=== PATIENT | male | born 1985 | race Caucasian/White ===

== ENCOUNTER 2017-05-01 02:32 | Inpatient (IN) | payer OTHER ==
[2017-05-01] MEDS ORDERED: SODIUM CHLORIDE 1,000 ML IV STA ×2 (03:37→09:58)
[2017-05-01] MEDS ORDERED: FAMOTIDINE 20 MG/50 ML IVPB 50 ML IVPB ONE ×2 (03:37→04:49)
[2017-05-01] MEDS ORDERED: PANTOPRAZOLE SODIUM 40 MG in SODIUM CHLORIDE 100 ML IVPB ONE (03:37)
--- NOTE | 2017-05-01 03:43 | PDOC ---
History of Present Illness - General Stated Complaint: ABD PAIN Time Seen by Provider: 05/01/17 03:17 History Source: Patient Exam Limitations: No Limitations - History of Present Illness Travel History: No Initial Comments: 05/01/17 03:38 32yo Male patient w/ PmHx: Asthma presents to ED c/o Abdominal pain. Patient states he went out to eat dinner (tacos) with mother when he began experiencing abdominal pain. He [place] pain [place]. Patient describes pain as burning sensation from mid-abd to upper stomach. He was recently seen by PCP Matt Miles for routine physical, and states everything was okay. Timing/Duration: reports: getting worse Quality: reports: moderate, burning Abdominal Pain Onset Location: reports: epigastric Pain Radiation: reports: no radiation Activities at Onset: reports: eating Treatment Prior to Arrive: worse with: analgesics, antacids, cold pack, heat, laxative, enema, other Aggravating Factors: improves with: Change in position Alleviating Factors: improves with: Rest Past History - Travel Traveled outside of the country in the last 30 days: No Close contact w/someone who was outside of country & ill: No - Past Medical History Allergies/Adverse Reactions: Allergies Allergy/AdvReac Type Severity Reaction Status Date / Time guaifenesin [From Robitussin] Allergy Severe Hives Verified 06/11/16 11:23 Home Medications: Ambulatory Orders Albuterol Sulfate Inhaler - [Ventolin Hfa Inhaler -] 1 - 2 inh PO PRN PRN Budesonide/Formeterol Fumarate [SYMBICORT 160/4.5mcg -] 1 puff IH PRN PRN Anemia: No Asthma: Yes (WHEEZING ONLY) Cancer: No Cardiac Disorders: Yes (CHILDHOOD HEART MURMUR) CVA: No COPD: No CHF: No Dementia: No Diabetes: No GI Disorders: No Disorders: No HTN: No Hypercholesterolemia: No Liver Disease: No Seizures: No Thyroid Disease: No - Surgical History Abdominal Surgery: No Appendectomy: No Cardiac Surgery: No Cholecystectomy: No Lung Surgery: No Neurologic Surgery: No Orthopedic Surgery: Yes (RIGHT ELBOW AGE 6) - Psycho/Social/Smoking Cessation Hx Anxiety: No Suicidal Ideation: No Smoking Status: Yes Smoking History: Former smoker Have you smoked in the past 12 months: No Number of Cigarettes Smoked Daily: 1 If you are a former smoker, when did you quit?: 2013 Hx Alcohol Use: Yes (RARE) Drug/Substance Use Hx: No Substance Use Type: None Hx Substance Use Treatment: No Abd/GI Specific PMHX - Complaint Specific PMHX Colitis: No Diverticulitis: No Gall Bladder Disease: No GERD: No Hepatitis: No Irritable Bowel Synd (IBS): No Pancreatitis: No GI Ulcer Disease: No Review of Systems - Review of Systems Able to Perform ROS?: Yes Is the patient limited [place] proficient: No Constitutional: No: Chills, Fever ABD/GI: Yes: Abdominal cramping. No: Diarrhea, Nausea, Poor Appetite, Poor Fluid Intake, Vomiting : No: Burning, Dysuria, Flank Pain, Hematuria All Other Systems: Reviewed and Negative *Physical Exam - Physical Exam General Appearance: Yes: Nourished, Appropriately Dressed, Apparent Distress, Moderate Distress. No: Mild Distress, Severe Distress Respiratory/Chest: positive: Lungs Clear, Normal Breath Sounds. negative: Chest Tender, Respiratory Distress, Accessory Muscle Use, Labored Respiration, Rapid RR Cardiovascular: positive: Regular Rhythm, Regular Rate. negative: S1, S2, Edema , JVD Gastrointestinal/Abdominal: positive: Tender, Soft, Decreased BS, Guarding, Rebound, Tenderness, Other (Large Abdomen). negative: Distended Musculoskeletal: positive: Normal Inspection. negative: CVA Tenderness, Decreased Range of Motion, Vertebral Tenderness Extremity: positive: Normal Capillary Refill, Normal Inspection, Normal Range of Motion. negative: Coldness, Pedal Edema, Swelling, Calf Tenderness, Erythema , Inflammation Integumentary: positive: Normal Color, Dry, Warm. negative: Erythema, Cold, Clammy, Diaphoresis, Swelling Neurologic: positive: disintegrator feeder II-XII NML intact, Fully Oriented, Alert, Normal Mood/ Affect, Normal Response, Motor Strength 5/5
--- NOTE | 2017-05-01 04:24 | PDOC ---
*Physical Exam - Vital Signs Last Vital Signs Temp Pulse Resp BP Pulse Ox 97.9 F 60 20 139/95 99 05/01/17 03:40 05/01/17 03:40 05/01/17 03:40 05/01/17 03:40 05/01/17 03:40 ED Treatment Course - LABORATORY CBC & Chemistry Diagram: 05/01/17 12:50 05/01/17 12:50 Medical Decision Making - Medical Decision Making 05/01/17 04:24 Pt seen by the Advanced Practice Provider under my direct supervision Ancillary studies reviewed I agree with plan as outlined by the Advanced Practice Provider TASH Martinez *DC/Admit/Observation/Transfer Diagnosis at time of Disposition: Epigastric pain, Cholecystitis
[2017-05-01 04:32] VITALS: BMI 47.6
[2017-05-01] MEDS ORDERED: PANTOPRAZOLE SODIUM 100 ML IVPB ONE (04:49)
[2017-05-01 04:51] LABS: BASOPHIL 0.6 % (0-2.0); EOSINOPHIL 2.4 % (0-4.5); MCH 28.6 pg (25.7-33.7); MCHC 33.6 g/dl (32.0-35.9); MEAN PLT VOLUME 9.5 fl (7.5-11.1); NEUTROPHILS 80.3 % (42.8-82.8); PLATELET COUNT 276 K/MM3 (134-434); RDW 13.5 % (11.9-15.9); WHITE BLOOD COUNT 12.4 K/mm3 (4.0-10.0)
[2017-05-01] MEDS ORDERED: morphine CARPU-JECT 4 MG/1 ML DISP.SYRIN IVPUSH ONE ×2 (05:12→09:32)
[2017-05-01] MEDS ORDERED: METOCLOPRAMIDE HCL INJECTION 10 MG/2 ML VIAL IVPB ONE (05:13)
[2017-05-01 05:22] LABS: ALBUMIN 4.3 g/dl (3.4-5.0); ALK PHOS 97 U/L (45-117); AMYLASE 75 U/L (25-115); ANION GAP 8 (8-16); BILIRUBIN,TOTAL 0.3 mg/dL (0.2-1.0); CALCIUM 9.4 mg/dL (8.5-10.1); CO2 25 mmol/L (21-32); GLUCOSE,RANDOM 112 mg/dL (74-106); SGOT/AST 22 U/L (15-37); SGPT/ALT 51 U/L (12-78); TOT PROT 8.3 g/dl (6.4-8.2)
[2017-05-01] MEDS ORDERED: morphine CARPU-JECT 4 MG/1 ML DISP.SYRIN ONE ×2 (05:25→09:42)
[2017-05-01] MEDS ORDERED: METOCLOPRAMIDE HCL INJECTION 10 MG/2 ML VIAL ONE (05:26)
--- NOTE | 2017-05-01 07:45 | PDOC ---
ED Treatment Course - LABORATORY CBC & Chemistry Diagram: 05/01/17 12:50 05/01/17 12:50 - ADDITIONAL ORDERS Additional order review: Laboratory Results 05/01/17 04:45 Sodium 141 Potassium 4.1 Chloride 108 H Carbon Dioxide 25 Anion Gap 8 BUN 20 H Creatinine 1.0 Creat Clearance w eGFR > 60 Random Glucose 112 H D Calcium 9.4 Total Bilirubin 0.3 D AST 22 D ALT 51 D Alkaline Phosphatase 97 Total Protein 8.3 H Albumin 4.3 Total Amylase 75 D Lipase 149 05/01/17 04:45 RBC 5.02 MCV 85.0 MCHC 33.6 RDW 13.5 MPV 9.5 Neutrophils % 80.3 D Lymphocytes % 12.3 D Monocytes % 4.4 Eosinophils % 2.4 D Basophils % 0.6 - Medications Given in the ED: ED Medications Discontinued Medications Generic Name Dose Route Start Last Admin Trade Name Freq PRN Reason Stop Dose Admin Pantoprazole Sodium 40 mg/ 100 mls @ 200 mls/hr 05/01/17 03:37 05/01/17 04:56 Sodium Chloride IVPB 05/01/17 04:06 200 mls/hr ONCE ONE Administration Famotidine/Sodium Chloride 50 mls @ 100 mls/hr 05/01/17 03:37 05/01/17 04:40 Pepcid 20 Mg Premixed Ivpb - IVPB 05/01/17 04:06 100 mls/hr ONCE ONE Administration Sodium Chloride 1,000 mls @ 1,000 mls/hr 05/01/17 03:37 05/01/17 04:55 Normal Saline - IV 05/01/17 04:36 1,000 mls/hr ASDIR STA Administration Metoclopramide HCl 10 mg 05/01/17 05:13 05/01/17 05:22 Reglan Injection - IVPB 05/01/17 05:14 10 mg ONCE ONE Administration Morphine Sulfate 4 mg 05/01/17 05:12 05/01/17 05:22 Morphine Injection - IVPUSH 05/01/17 05:13 4 mg ONCE ONE Administration Progress Note - Progress Note Progress Note: I have received report from TASH Martinez regarding this patient. Pt's initial chief complaint: abdominal pain Pt's work up completed prior to sign out: labs, UA, EKG Pt treatment given from prior staff: morphine, pepcid, reglan, protonix Pt plan to be completed: Awaiting CT of abd/pelvis Dispo: Pending Medical Decision Making - Medical Decision Making A/P: 32 y/o male c/o abdominal pain. Patient was evaluated by TASH Martinez. Labs , UA, EKG completed and unremarkable. Awaiting on CT scan of abd/pelvis. CT scan abd/pelvis IMPRESSION: Cholelithiasis with slight apparent thickening of the gallbladder wall and minimal haziness in the gallbladder margins. Early cholecystitis can have this appearance. No other inflammatory process identified in the abdomen or pelvis. No abdominal mass, adenopathy or collection seen. The patient was given his results. He is still in quite a bit of pain with + Klein's sign. Will give more pain medication and call surgery. Spoke with Dr. Meek. She suggests gallbladder ultrasound Gallbladder ultrasound IMPRESSION: Fatty liver versus hepatocellular disease. Please correlate with liver enzymes. Multiple small gallstones without sonographic evidence of acute cholecystitis. Correlate clinically to determine further evaluation. Dr. Meek reviewed all the imaging and saw the patient. She is not convinced it' s cholecystitis. THe patient did inform her that Dr. Miles called him out some medications to try for reflux a few days ago which he has not picked up yet. She would like a repeat set of basic lab and if everything is stable d/c to home with GI follow up. Pt is in agreement with that plan. Gave him PO carafate. Repeat labs reveal an increase in WBC count and Neutrophil %. The patient does appear to now be well hydrated. He admits he feels better after PO Carafate. Discussed the plan with him for admission for antibiotics and he is willing to stay. Spoke with Dr. Meek and she is willing to admit him. *DC/Admit/Observation/Transfer Diagnosis at time of Disposition: Epigastric pain, Cholecystitis - Discharge Dispostion Condition at time of disposition: Stable Admit: Yes
[2017-05-01] MEDS ORDERED: morphine CARPU-JECT 2 MG/1 ML DISP.SYRIN IVPUSH ONE (09:45)
[2017-05-01] MEDS ORDERED: morphine CARPU-JECT 2 MG/1 ML DISP.SYRIN ONE (09:46)
[2017-05-01] MEDS ORDERED: SUCRALFATE 1 GM TABLET (FP) PO ONE (12:34)
[2017-05-01] MEDS ORDERED: SUCRALFATE 1 GM TABLET (FP) ONE (12:39)
[2017-05-01 12:57] LABS: BASOPHIL 0.4 % (0-2.0); EOSINOPHIL 0.3 % (0-4.5); MCH 28.7 pg (25.7-33.7); MCHC 33.9 g/dl (32.0-35.9); MEAN CELL VOLUME 84.6 fl (80-96); NEUTROPHILS 84.3 % (42.8-82.8); PLATELET COUNT 252 K/MM3 (134-434); RDW 13.9 % (11.9-15.9); WHITE BLOOD COUNT 13.3 K/mm3 (4.0-10.0)
[2017-05-01 13:25] LABS: ALBUMIN 3.9 g/dl (3.4-5.0); ALK PHOS 95 U/L (45-117); ANION GAP 9 (8-16); BILIRUBIN,TOTAL 0.4 mg/dL (0.2-1.0); CALCIUM 8.8 mg/dL (8.5-10.1); CO2 24 mmol/L (21-32); CREATININE 0.7 mg/dL (0.7-1.3); GLUCOSE,RANDOM 99 mg/dL (74-106); SGOT/AST 17 U/L (15-37); SGPT/ALT 43 U/L (12-78); TOT PROT 7.3 g/dl (6.4-8.2)
--- NOTE | 2017-05-01 14:02 | CONSULT ---
Consult - text type - Consultation Consultation Note: Pt seen and examined in ER. History and exam more consistent with GERD/PUD than cholecystitis, but WBC 12.4 and + cholelithiasis. Repeated labs and wbc up to 13 with left shift. BUN/Cr and H/H decreased consistent with euvolemia after IV hydration. Pt willing to stay. Will admit for IV antibiotics for presumed cholecystitis and consideration for HIDA/lap krystal pending clinical course. With resolution, pt may decide on d/c home with plan for GI workup prior to cholecystectomy. See full H&P for details. Thank you for the opportunity to participate in the care of this patient.
--- NOTE | 2017-05-01 14:07 | HP ---
Admitting History and Physical - Primary Care Physician PCP: Matt Miles - Admission Chief Complaint: epigastric pain History of Present Illness: 32yo obese M with asthma and h/o L arthroscopic ACL reconstruction last year presents with epigastric pain beginning around 10pm last night after eating taco meal at restaurant. The pain persisted and got worse over the next several hours, interfering with sleep, and was not affected by having a BM or taking Tums. He came to the ER around 3am, and had one episode of N/V (green) shortly after arriving while getting IV placed and labs drawn. He denies F/C but had sweating when the pain first began. No d/c, normal BM last night. Last po was water while in waiting room and one small cup of water after CT scan. In ER, wbc 12.4, LFTs and lipase normal, CT suspicious for early cholecystitis with + stones (one possibly in gb neck on my review), mild haziness at wall/liver edge , no biliary dilation. US showed only cholelithiasis with multiple stones but no signs of cholecystitis and normal CBD. Pain responded somewhat to morphine and carafate in ER. He had also been given Protonix and Pepcid. Tenderness is primarily epigastric without john RUQ tenderness, but pain was coming back after US was done. Surgery was consulted and labs were repeated. Pt describes episode of RUQ pain few years ago investigated here and thought to be GERD, took course of acid medication then but not regularly. 5 days ago, had episode of acid in back of throat early in the morning and took Tums with relief. Few days ago, he had chest tightness in am and saw PMD; workup including EKG, CXR, stress test was negative per pt. He has not yet picked up Rx for acid medication, but they were planning a trial thereof for presumed acid-related pain. He has not seen GI and does not take anything usually for acid. Review of [facility] shows US from 2008 showing no stones, but appears to possibly have sludge in gallbladder on review of images. Chest CT done 2014 does not visualize most of gallbladder. Repeat labs showed wbc increased at 13 with left shift, LFTs still normal. Pt is agreeable to admission for treatment for presumed cholecystitis. History Source: Patient Limitations to Obtaining History: No Limitations - Past Medical History Pulmonary: Yes: Asthma Gastrointestinal: Yes: GERD (been treated in past, describes intermittent symptoms) Musculoskeletal: Yes: Other (left ACL tear) - Past Surgical History Past Surgical History: Yes: Arthrosocopy (L ACL reconstruction) - Smoking History Smoking history: Former smoker Have you smoked in the past 12 months: No Aproximately how many cigarettes per day: 1 If you are a former smoker, when did you quit?: 2013 - Alcohol/Substance Use Hx Alcohol Use: Yes (RARE) History of Substance Use: reports: Marijuana Date of Last Use: 04/17/06 (daily x4-5 yrs, quit age 21) Home Medications - Allergies Allergies/Adverse Reactions: Allergies Allergy/AdvReac Type Severity Reaction Status Date / Time guaifenesin [From Robitussin] Allergy Severe Hives Verified 05/01/17 03:40 - Home Medications Home Medications: Ambulatory Orders Albuterol Sulfate Inhaler - [Ventolin Hfa Inhaler -] 1 - 2 inh PO PRN PRN Budesonide/Formeterol Fumarate [SYMBICORT 160/4.5mcg -] 1 puff IH PRN PRN Home Medications (free text): does not take symbicort every day; has not needed albuterol recently. has not picked up new Rx for antacid (not sure what was prescribed few days ago by PMD) Family Disease History - Family Disease History Family History: Unremarkable Review of Systems - Review of Systems Constitutional: reports: Diaphoresis (with pain last night initially). denies: Chills, Fever Eyes: denies: Blurred Vision, Double Vision HENT: denies: Difficult Swallowing, Hearing Loss, Nasal Congestion, Throat Pain Neck: denies: Swollen Glands, Tenderness Cardiovascular: reports: Chest Pain (felt tightness in am few days ago and saw PMD - had EKG, CXR, stress test all normal - no pain since). denies: Palpitations Respiratory: denies: Cough, SOB, Wheezing Gastrointestinal: reports: Abdominal Pain (with hpi; had episode of acid at back of throat 5d ago, better with Tums), Nausea (some), Vomiting (once in ER when first got here, green, small). denies: Constipation, Diarrhea Genitourinary: denies: Burning, Dysuria, Frequency Musculoskeletal: denies: Back Pain, Joint Pain, Muscle Pain Integumentary: denies: Pruritis, Rash Neurological: denies: Dizziness, Headache Physical Examination Vital Signs: Vital Signs Temperature 98.1 F 05/01/17 07:45 Pulse Rate 93 H 05/01/17 07:45 Respiratory Rate 18 05/01/17 07:45 Blood Pressure 145/87 05/01/17 07:45 O2 Sat by Pulse Oximetry (%) 98 05/01/17 07:45 Constitutional: Yes: Well Nourished, No Distress, Calm, Obese Eyes: Yes: Conjunctiva Clear, EOM Intact HENT: Yes: Atraumatic, Normocephalic Cardiovascular: Yes: Regular Rate and Rhythm. No: Murmur Respiratory: Yes: Regular, CTA Bilaterally. No: Wheezes Gastrointestinal: Yes: Soft, Abdomen, Obese, Hypoactive Bowel Sounds, Tenderness , Epigastrium (epigastric mainly without R/G, also mild just right of midline epigastric) ...Rectal Exam: Yes: Deferred Renal/: No: CVA Tenderness - Left, CVA Tenderness - Right Musculoskeletal: No: Joint Stiffness, Joint Swelling Extremities: No: Cool, Cyanosis Edema: No Peripheral Pulses WNL: Yes Integumentary: No: Jaundice, Rash Neurological: Yes: Alert, Oriented Psychiatric: Yes: Alert, Oriented Labs: CBC, BMP 05/01/17 12:50 05/01/17 12:50 Abnormal Lab Results 05/01/17 05/01/17 05/01/17 04:45 04:45 12:50 WBC 12.4 H 13.3 H Neutrophils % 84.3 H Chloride 108 H BUN 20 H Random Glucose 112 H D Total Protein 8.3 H CBCD WBC 13.3 K/mm3 (4.0-10.0) H 05/01/17 12:50 RBC 4.82 M/mm3 (4.00-5.60) 05/01/17 12:50 Hgb 13.8 GM/dL (11.7-16.9) 05/01/17 12:50 Hct 40.8 % (35.4-49) 05/01/17 12:50 MCV 84.6 fl (80-96) 05/01/17 12:50 MCHC 33.9 g/dl (32.0-35.9) 05/01/17 12:50 RDW 13.9 % (11.9-15.9) 05/01/17 12:50 Plt Count 252 K/MM3 (134-434) 05/01/17 12:50 MPV 9.0 fl (7.5-11.1) 05/01/17 12:50 CMP Sodium 140 mmol/L (136-145) 05/01/17 12:50 Potassium 3.9 mmol/L (3.5-5.1) 05/01/17 12:50 Chloride 107 mmol/L (98-107) 05/01/17 12:50 Carbon Dioxide 24 mmol/L (21-32) 05/01/17 12:50 Anion Gap 9 (8-16) 05/01/17 12:50 BUN 13 mg/dL (7-18) D 05/01/17 12:50 Creatinine 0.7 mg/dL (0.7-1.3) D 05/01/17 12:50 Creat Clearance w eGFR > 60 (>60) 05/01/17 12:50 Calcium 8.8 mg/dL (8.5-10.1) 05/01/17 12:50 Total Bilirubin 0.4 mg/dL (0.2-1.0) D 05/01/17 12:50 AST 17 U/L (15-37) D 05/01/17 12:50 ALT 43 U/L (12-78) 05/01/17 12:50 Alkaline Phosphatase 95 U/L (45-117) 05/01/17 12:50 Total Protein 7.3 g/dl (6.4-8.2) 05/01/17 12:50 Albumin 3.9 g/dl (3.4-5.0) 05/01/17 12:50 lipase normal Imaging - Results Cat Scan: Report Reviewed, Image Reviewed (gallbladder with slight possible haziness at liver edge, + cholelithiasis; on my review, moderate size stone in neck of gb, no biliary dilation) Ultrasound: Report Reviewed (with radiologist - + multiple stones, but not impacted, no wall thickening or pericholecystic fluid/edema, cbd 4mm), Image Reviewed Problem List - Problems (1) Epigastric pain Assessment/Plan: Some history and symptoms suspicious for GERD/PUD related pain. Pt has Rx waiting as outpatient from PMD to try but has not been referred to GI. Would consider outpatient referral/followup after resolution of acute issues for possible scope/workup. Code(s): R10.13 - EPIGASTRIC PAIN (2) Calculus of gallbladder with acute cholecystitis without obstruction Assessment/Plan: Cholecystitis likely related to intermittent stone obstructing gallbladder neck Admit to surgery NPO/IVF until no pain or tenderness GI/DVT prophylaxis (ambulation and SCDs) IV antibiotics - Zosyn per ID Trend labs Pain meds prn Will plan for lap possible open cholecystectomy Wednesday Code(s): K80.00 - CALCULUS OF GALLBLADDER W ACUTE CHOLECYST W/O OBSTRUCTION (3) Morbid obesity with BMI of 45.0-49.9, adult Code(s): E66.01 - MORBID (SEVERE) OBESITY DUE TO EXCESS CALORIES Z68.42 - BODY MASS INDEX (BMI) 45.0-49.9, ADULT
[2017-05-01] MEDS ORDERED: PIPERACILLIN/TAZOB 4.5 GM 4.5 GM in DEXTROSE 5%-WATER - 100 ML IVPB ONE (14:41)
[2017-05-01] MEDS ORDERED: ONDANSETRON 4 MG/2 ML VIAL IVPB PRN ×2 (14:44→22:37)
[2017-05-01] MEDS ORDERED: morphine CARPU-JECT 2 MG/1 ML DISP.SYRIN IVPUSH PRN ×2 (14:44→22:37)
[2017-05-01] MEDS ORDERED: ALBUTEROL SO4 0.083% IH SOL 2.5 MG/3 ML VIAL.NEB. NEB PRN ×2 (14:44→22:37)
--- NOTE | 2017-05-01 14:49 | CONSULT ---
Consult Consult Specialty:: infectious diseases Reason for Consultation:: abd pain,leukocytosis - History of Present Illness Chief Complaint: severe abd pain History of Present Illness: 32yo obese M with asthma and h/o L arthroscopic ACL reconstruction last year presents came with epigastric pain beginning around 10pm last night after eating taco meal at restaurant. Patient mentions that he went for walk with his mother on the [place] and they walked around hoping that his pain would go Pain persisted and the patient came to the hospital . He was evaluated by surgery and his imaging studies did show gall [id number] but no choley. patients pain continued and further blood work showed increasing wbc and a shift which was not there initially and also the pain according to the patient was still at 5 Ct was done currently patient feels better after getting pain medications denies any fever nausea or vomiting - History Source History Provided By: Patient Limitations to Obtaining History: No Limitations - Past Medical History Pulmonary: Yes: Asthma Gastrointestinal: Yes: GERD (been treated in past, describes intermittent symptoms) Musculoskeletal: Yes: Other (left ACL tear) - Past Surgical History Past Surgical History: Yes: Arthrosocopy (L ACL reconstruction) - Alcohol/Substance Use Hx Alcohol Use: Yes (RARE) History of Substance Use: reports: Marijuana Date of Last Use: 04/17/06 (daily x4-5 yrs, quit age 21) - Smoking History Smoking history: Former smoker Have you smoked in the past 12 months: No Aproximately how many cigarettes per day: 1 If you are a former smoker, when did you quit?: 2013 Home Medications - Allergies Allergies/Adverse Reactions: Allergies Allergy/AdvReac Type Severity Reaction Status Date / Time guaifenesin [From Robitussin] Allergy Severe Hives Verified 05/01/17 03:40 - Home Medications Home Medications: Ambulatory Orders Albuterol Sulfate Inhaler - [Ventolin Hfa Inhaler -] 1 - 2 inh PO PRN PRN Budesonide/Formeterol Fumarate [SYMBICORT 160/4.5mcg -] 1 puff IH PRN PRN Review of Systems - Review of Systems Constitutional: reports: No Symptoms Eyes: reports: No Symptoms HENT: reports: No Symptoms Neck: reports: No Symptoms Cardiovascular: reports: No Symptoms Respiratory: reports: No Symptoms Gastrointestinal: reports: Abdominal Pain Genitourinary: reports: No Symptoms Musculoskeletal: reports: No Symptoms Integumentary: reports: No Symptoms Neurological: reports: No Symptoms Endocrine: reports: No Symptoms Hematology/Lymphatic: reports: No Symptoms Psychiatric: reports: No Symptoms Physical Exam Vital Signs: Vital Signs Temperature 98.1 F 05/01/17 07:45 Pulse Rate 93 H 05/01/17 07:45 Respiratory Rate 18 05/01/17 07:45 Blood Pressure 145/87 05/01/17 07:45 O2 Sat by Pulse Oximetry (%) 98 05/01/17 07:45 Constitutional: Yes: Well Nourished, Calm, Mild Distress, Obese Eyes: Yes: Conjunctiva Clear HENT: Yes: Atraumatic, Normocephalic Neck: Yes: Supple, Trachea Midline Cardiovascular: Yes: Regular Rate and Rhythm Respiratory: Yes: Regular, CTA Bilaterally Gastrointestinal: Yes: Normal Bowel Sounds, Soft, Other Musculoskeletal: Yes: WNL Extremities: Yes: WNL Neurological: Yes: Alert, Oriented Psychiatric: Yes: Alert, Oriented Imaging - Results Cat Scan: Report Reviewed, Image Reviewed Ultrasound: Report Reviewed, Image Reviewed Assessment/Plan Problem List - Problems (1) Epigastric pain Code(s): R10.13 - EPIGASTRIC PAIN (2) Calculus of gallbladder with acute cholecystitis without obstruction Code(s): K80.00 - CALCULUS OF GALLBLADDER W ACUTE CHOLECYST W/O OBSTRUCTION (3) Morbid obesity with BMI of 45.0-49.9, adult Code(s): E66.01 - MORBID (SEVERE) OBESITY DUE TO EXCESS CALORIES Z68.42 - BODY MASS INDEX (BMI) 45.0-49.9, ADULT looking at the patient and his symptoms there are chances he might be developing choleycystitis plan hydration will start on abx monitor how he behaves will see what is wbc tomorrow and his symptoms
[2017-05-01] MEDS ORDERED: PIPERACILLIN/TAZOB 4.5 GM 100 ML IVPB SCH (15:00)
[2017-05-01] MEDS ORDERED: PIPERACILLIN/TAZOB 4.5 GM 100 ML IVPB ONE (15:02)
[2017-05-01] MEDS: LACTATED RINGERS SOLUTION 1,000 ML IV SCH ×3 (15:02→23:19)
[2017-05-01] MEDS ORDERED: PT OWN MED DRAWER 7, Y5N ONE (21:21)
[2017-05-01] MEDS ORDERED: BUDESONIDE/FORMETEROL FUMARATE 160/4.5 mcg INHALER IH SCH (22:00)
[2017-05-01 22:26] LABS: URINE APPEARANCE CLEAR; URINE BILIRUBIN NEGATIVE (NEGATIVE); URINE COLOR LTYELLOW; URINE GLUCOSE (UA) NEGATIVE (NEGATIVE); URINE KETONE 2+ (NEGATIVE); URINE LEUK ESTERASE NEGATIVE (NEGATIVE); URINE NITRITE NEGATIVE (NEGATIVE); URINE PROTEIN NEGATIVE (NEGATIVE); URINE UROBILINOGEN NEGATIVE mg/dL (0.2-1.0)
[2017-05-01 22:39] LABS: URINE BLOOD 1+ (NEGATIVE)
[2017-05-01 22:40] LABS: URINE BACTERIA RARE /hpf (NONE SEEN); URINE MUCUS RARE; URINE RBC 2 /hpf (0-3); URINE WBC <1 /hpf (3-5)
[2017-05-02] MEDS: PIPERACILLIN/TAZOB 4.5 GM 100 ML IVPB SCH ×3 (01:17→20:23)
[2017-05-02] MEDS ORDERED: PIPERACILLIN/TAZOB 4.5 GM/100 ML PRE-DOCKED IVPB ONE (02:00)
[2017-05-02] MEDS: LACTATED RINGERS SOLUTION 1,000 ML IV SCH ×2 (06:48→19:00)
[2017-05-02 08:05] LABS: BASOPHIL 0.3 % (0-2.0); EOSINOPHIL 5.9 % (0-4.5); MCH 29.2 pg (25.7-33.7); MCHC 34.5 g/dl (32.0-35.9); MEAN CELL VOLUME 84.6 fl (80-96); MEAN PLT VOLUME 9.2 fl (7.5-11.1); NEUTROPHILS 60.2 % (42.8-82.8); PLATELET COUNT 227 K/MM3 (134-434); RDW 13.8 % (11.9-15.9)
[2017-05-02 08:35] LABS: ALBUMIN 3.5 g/dl (3.4-5.0); ALK PHOS 87 U/L (45-117); AMYLASE 46 U/L (25-115); ANION GAP 7 (8-16); BILIRUBIN,TOTAL 0.8 mg/dL (0.2-1.0); CALCIUM 8.5 mg/dL (8.5-10.1); CO2 29 mmol/L (21-32); CREATININE 0.9 mg/dL (0.7-1.3); GLUCOSE,RANDOM 88 mg/dL (74-106); SGOT/AST 18 U/L (15-37); SGPT/ALT 37 U/L (12-78); TOT PROT 6.7 g/dl (6.4-8.2)
[2017-05-02 08:41] LABS: INR 1.28 (0.82-1.09); PROTHROMBIN TIME (PATIENT) 14.1 SEC (9.98-11.88)
[2017-05-02] MEDS ORDERED: ACETAMINOPHEN 325 MG TABLET (FP) PO ONE (09:30)
[2017-05-02] MEDS ORDERED: PT OWN MED DRAWER 7, Y5N ONE ×2 (09:41→21:37)
[2017-05-02] MEDS: PANTOPRAZOLE SODIUM 100 ML IVPB SCH (09:44)
[2017-05-02] MEDS: BUDESONIDE/FORMETEROL FUMARATE 160/4.5 mcg INHALER IH SCH ×2 (09:45→21:32)
[2017-05-02] MEDS ORDERED: PANTOPRAZOLE SODIUM 100 ML IVPB SCH (10:00)
--- NOTE | 2017-05-02 13:11 | PN ---
Progress Note, Physician History of Present Illness: patient stable no new issues no pain - Current Medication List Current Medications: Active Medications Albuterol Sulfate (Ventolin 0.083% Nebulizer Soln -) 1 amp NEB Q6H PRN PRN Reason: SHORT OF BREATH/WHEEZING Budesonide/Formoterol Fumarate (Symbicort 160/4.5mcg -) 1 puff IH BID [facility] Last Admin: 05/02/17 09:45 Dose: 1 puff Lactated Ringer's (Lactated Ringers Solution) 1,000 mls @ 125 mls/hr IV ASDIR RUTH Last Admin: 05/02/17 06:48 Dose: 125 mls/hr Pantoprazole Sodium (Protonix 40mg Ivpb (Pre-Docked)) 100 mls @ 200 mls/hr IVPB DAILY RUTH Last Admin: 05/02/17 09:44 Dose: 200 mls/hr Piperacillin Sod/Tazobactam Sod (Zosyn 4.5gm Ivpb (Pre-Docked)) 100 mls @ 200 mls/hr IVPB Q8H-IV RTUH PRN Reason: Protocol Last Admin: 05/02/17 09:45 Dose: 200 mls/hr Morphine Sulfate (Morphine Injection -) 2 mg IVPUSH Q4H PRN PRN Reason: PAIN Ondansetron HCl (Zofran Injection) 4 mg IVPB Q6H PRN PRN Reason: NAUSEA - Objective Vital Signs: Vital Signs Temperature 98.9 F 05/02/17 08:56 Pulse Rate 59 L 05/02/17 05:34 Respiratory Rate 18 05/02/17 08:56 Blood Pressure 127/82 05/02/17 08:56 O2 Sat by Pulse Oximetry (%) 98 05/01/17 15:45 Constitutional: Yes: No Distress, Calm Neck: Yes: Supple Cardiovascular: Yes: Regular Rate and Rhythm Respiratory: Yes: Regular, CTA Bilaterally Gastrointestinal: Yes: Normal Bowel Sounds, Soft Musculoskeletal: Yes: WNL Extremities: Yes: WNL Neurological: Yes: Alert, Oriented Psychiatric: Yes: Alert, Oriented Labs: CBC, BMP 05/02/17 06:00 05/02/17 06:00 INR, PTT INR 1.28 (0.82-1.09) H 05/02/17 06:00 Assessment/Plan Problem List - Problems (1) Epigastric pain Code(s): R10.13 - EPIGASTRIC PAIN (2) Calculus of gallbladder with acute cholecystitis without obstruction Code(s): K80.00 - CALCULUS OF GALLBLADDER W ACUTE CHOLECYST W/O OBSTRUCTION (3) Morbid obesity with BMI of 45.0-49.9, adult Code(s): E66.01 - MORBID (SEVERE) OBESITY DUE TO EXCESS CALORIES Z68.42 - BODY MASS INDEX (BMI) 45.0-49.9, ADULT patient feeling much better wbc has normalized plan patient going to discuss about surgery with surgeon continue abx till plan is made
--- NOTE | 2017-05-02 20:09 | PN ---
Progress Note, Physician Chief Complaint: epigastric pain History of Present Illness: Pt seen and examined at bedside. Feeling well, no more pain. Hungry. No n/v, had headache earlier, but it went away when he got up and walked around. - Current Medication List Current Medications: Active Medications Albuterol Sulfate (Ventolin 0.083% Nebulizer Soln -) 1 amp NEB Q6H PRN PRN Reason: SHORT OF BREATH/WHEEZING Budesonide/Formoterol Fumarate (Symbicort 160/4.5mcg -) 1 puff IH BID [facility] Last Admin: 05/02/17 09:45 Dose: 1 puff Lactated Ringer's (Lactated Ringers Solution) 1,000 mls @ 125 mls/hr IV ASDIR [facility] Last Admin: 05/02/17 06:48 Dose: 125 mls/hr Pantoprazole Sodium (Protonix 40mg Ivpb (Pre-Docked)) 100 mls @ 200 mls/hr IVPB DAILY [facility] Last Admin: 05/02/17 09:44 Dose: 200 mls/hr Piperacillin Sod/Tazobactam Sod (Zosyn 4.5gm Ivpb (Pre-Docked)) 100 mls @ 200 mls/hr IVPB Q8H-IV [facility] PRN Reason: Protocol Last Admin: 05/02/17 09:45 Dose: 200 mls/hr Morphine Sulfate (Morphine Injection -) 2 mg IVPUSH Q4H PRN PRN Reason: PAIN Ondansetron HCl (Zofran Injection) 4 mg IVPB Q6H PRN PRN Reason: NAUSEA - Objective Vital Signs: Vital Signs Temperature 99.4 F 05/02/17 14:35 Pulse Rate 69 05/02/17 14:35 Respiratory Rate 18 05/02/17 14:35 Blood Pressure 132/73 05/02/17 14:35 O2 Sat by Pulse Oximetry (%) 98 05/01/17 15:45 Constitutional: Yes: No Distress, Calm, Obese Eyes: Yes: Conjunctiva Clear. No: Sclera Icterus Cardiovascular: Yes: Regular Rate and Rhythm, Murmur (systolic) Respiratory: Yes: Regular, CTA Bilaterally. No: Wheezes Gastrointestinal: Yes: Normal Bowel Sounds, Soft, Abdomen, Obese. No: Distention, Tenderness, Tenderness, Epigastrium Neurological: Yes: Alert, Oriented Labs: CBC, BMP 05/02/17 06:00 05/02/17 06:00 INR, PTT INR 1.28 (0.82-1.09) H 05/02/17 06:00 Problem List - Problems (1) Epigastric pain Assessment/Plan: Some history and symptoms suspicious for GERD/PUD related pain. Pt has Rx waiting as outpatient from PMD to try but has not been referred to GI. Would consider outpatient referral/followup after resolution of acute issues for possible scope/workup. Pepcid while in hospital Code(s): R10.13 - EPIGASTRIC PAIN (2) Calculus of gallbladder with acute cholecystitis without obstruction Assessment/Plan: Cholecystitis likely related to intermittent stone obstructing gallbladder neck Pain/tenderness resolved Continue NPO/IVF with plan for surgery tomorrow GI/DVT prophylaxis (ambulation and SCDs) IV antibiotics - Zosyn per ID Trend labs - wbc down, LFTs normal Pain meds prn R/B/A of laparoscopic possible open cholecystectomy discussed with patient including but not limited to bleeding, infection, injury to bile duct or nearby structures, bile leak, need for further procedures; alternatives include no surgery, delayed/elective surgery - with risks of recurrent attacks of cholecystitis and/or pancreatitis, possibly severe. Pt agreeable to operation; informed consent for same signed and on chart. Plan for procedure tomorrow when OR available. Code(s): K80.00 - CALCULUS OF GALLBLADDER W ACUTE CHOLECYST W/O OBSTRUCTION (3) Morbid obesity with BMI of 45.0-49.9, adult Code(s): E66.01 - MORBID (SEVERE) OBESITY DUE TO EXCESS CALORIES Z68.42 - BODY MASS INDEX (BMI) 45.0-49.9, ADULT
[2017-05-03] MEDS: PIPERACILLIN/TAZOB 4.5 GM 100 ML IVPB SCH ×3 (01:49→17:48)
[2017-05-03] MEDS: LACTATED RINGERS SOLUTION 1,000 ML IV SCH ×2 (01:49→15:31)
[2017-05-03] MEDS ORDERED: PT OWN MED DRAWER 7, Y5N ONE (09:01)
[2017-05-03] MEDS: PANTOPRAZOLE SODIUM 100 ML IVPB SCH (09:02)
[2017-05-03] MEDS: BUDESONIDE/FORMETEROL FUMARATE 160/4.5 mcg INHALER IH SCH ×2 (09:07→21:38)
--- NOTE | 2017-05-03 11:33 | PN ---
Progress Note (short form) - Note Progress Note: Pt with no pain, NPO for OR today. No complaints. Resting comfortably. Vital Signs Period Temp Pulse Resp BP Sys/Lucio Pulse Ox Last 24 Hr 98.4 F-99.4 F 68-72 18-20 130-138/72-83 PE: abd soft, obese, nontender A/P: acute cholecystitis on antibiotics for lap poss open cholecystectomy today resume po postop pain meds prn postop anticipate possible d/c home tomorrow if ambulating, voiding, refugio po, on oral pain meds Problem List - Problems (1) Epigastric pain Code(s): R10.13 - EPIGASTRIC PAIN (2) Calculus of gallbladder with acute cholecystitis without obstruction Code(s): K80.00 - CALCULUS OF GALLBLADDER W ACUTE CHOLECYST W/O OBSTRUCTION (3) Morbid obesity with BMI of 45.0-49.9, adult Code(s): E66.01 - MORBID (SEVERE) OBESITY DUE TO EXCESS CALORIES Z68.42 - BODY MASS INDEX (BMI) 45.0-49.9, ADULT
--- NOTE | 2017-05-03 14:33 | PN ---
Progress Note, Physician History of Present Illness: patient stable no complaints going for surgery today - Current Medication List Current Medications: Active Medications Albuterol Sulfate (Ventolin 0.083% Nebulizer Soln -) 1 amp NEB Q6H PRN PRN Reason: SHORT OF BREATH/WHEEZING Budesonide/Formoterol Fumarate (Symbicort 160/4.5mcg -) 1 puff IH BID [facility] Last Admin: 05/03/17 09:07 Dose: 1 puff Lactated Ringer's (Lactated Ringers Solution) 1,000 mls @ 125 mls/hr IV ASDIR [facility] Last Admin: 05/03/17 01:49 Dose: 125 mls/hr Pantoprazole Sodium (Protonix 40mg Ivpb (Pre-Docked)) 100 mls @ 200 mls/hr IVPB DAILY [facility] Last Admin: 05/03/17 09:02 Dose: 200 mls/hr Piperacillin Sod/Tazobactam Sod (Zosyn 4.5gm Ivpb (Pre-Docked)) 100 mls @ 200 mls/hr IVPB Q8H-IV [facility] PRN Reason: Protocol Last Admin: 05/03/17 09:03 Dose: 200 mls/hr Morphine Sulfate (Morphine Injection -) 2 mg IVPUSH Q4H PRN PRN Reason: PAIN Ondansetron HCl (Zofran Injection) 4 mg IVPB Q6H PRN PRN Reason: NAUSEA - Objective Vital Signs: Vital Signs Temperature 98.8 F 05/03/17 08:53 Pulse Rate 72 05/03/17 08:53 Respiratory Rate 18 05/03/17 09:00 Blood Pressure 138/83 05/03/17 08:53 O2 Sat by Pulse Oximetry (%) 98 05/01/17 15:45 Constitutional: Yes: No Distress, Calm Cardiovascular: Yes: Regular Rate and Rhythm Respiratory: Yes: Regular, CTA Bilaterally Gastrointestinal: Yes: Normal Bowel Sounds, Soft Musculoskeletal: Yes: WNL Extremities: Yes: WNL Neurological: Yes: Alert, Oriented Psychiatric: Yes: Alert, Oriented Labs: CBC, BMP 05/02/17 06:00 05/02/17 06:00 INR, PTT INR 1.28 (0.82-1.09) H 05/02/17 06:00 Assessment/Plan Problem List - Problems (1) Epigastric pain Code(s): R10.13 - EPIGASTRIC PAIN (2) Calculus of gallbladder with acute cholecystitis without obstruction Code(s): K80.00 - CALCULUS OF GALLBLADDER W ACUTE CHOLECYST W/O OBSTRUCTION (3) Morbid obesity with BMI of 45.0-49.9, adult Code(s): E66.01 - MORBID (SEVERE) OBESITY DUE TO EXCESS CALORIES Z68.42 - BODY MASS INDEX (BMI) 45.0-49.9, ADULT plan patient going to surgery continue current mgmt
[2017-05-03] MEDS ORDERED: BUPIVACAINE HCL/PF 0.5% (5MG/ML) 10 ML VIAL ONE (14:40)
[2017-05-03] MEDS ORDERED: LIDOCAINE HCL 1%, 10 MG/ML (20ML VIAL) ONE (14:40)
[2017-05-03] MEDS ORDERED: ROCURONIUM BROMIDE 50 MG/5 ML VIAL ONE ×3 (17:13→17:40)
[2017-05-03] MEDS ORDERED: MIDAZOLAM HCL 2 MG/2 ML SINGLE DOSE VIAL ONE (17:13)
[2017-05-03] MEDS ORDERED: DESFLURANE GAS 240 ML BOTTLE IH ONE (17:17)
[2017-05-03] MEDS ORDERED: PIPERACILLIN/TAZOB 4.5 GM/100 ML PRE-DOCKED IVPB ONE (17:30)
[2017-05-03] MEDS ORDERED: LIDOCAINE HCL 1%, 10 MG/ML (50 mL VIAL) IJ ONE ×2 (18:34→19:48)
[2017-05-03] MEDS ORDERED: BUPIVACAINE HCL/PF 0.5% (5MG/ML) 10 ML VIAL IJ ONE ×2 (18:35→19:48)
[2017-05-03] MEDS ORDERED: GLYCOPYRROLATE 0.2 MG/1 ML VIAL ONE ×2 (19:04→19:06)
[2017-05-03] MEDS ORDERED: NEOSTIGMINE METHYLSULFATE 0.5 MG/ML - 10 ML MDV ONE (19:05)
[2017-05-03] MEDS ORDERED: ONDANSETRON 4 MG/2 ML VIAL ONE (19:07)
[2017-05-03] MEDS ORDERED: KETOROLAC TROMETHAMINE 30 MG/1 ML VIAL ONE (19:31)
[2017-05-03] MEDS ORDERED: PROMETHAZINE HCL 25 MG/1 ML VIAL IVPUSH PRN ×2 (19:48→21:31)
[2017-05-03] MEDS ORDERED: ONDANSETRON 4 MG/2 ML VIAL IVPUSH PRN (19:48)
[2017-05-03] MEDS ORDERED: LACTATED RINGERS SOLUTION 1,000 ML IV SCH ×2 (20:00→21:31)
--- NOTE | 2017-05-03 20:10 | OP ---
Operative Note - Note: Operative Date: 05/03/17 Pre-Operative Diagnosis: acute cholecystitis Operation: laparoscopic cholecystectomy Findings: enlarged tense gallbladder full of stones, decompressed of light green bile, stones in cystic duct milked above XL clips; critical view identified Post-Operative Diagnosis: Same as Pre-op Surgeon: Hans Meek Cage Cashier: Sean Boyle Anesthesiologist/MACHINE SILK SCREEN PRINTER: Amari Madrigal Anesthesia: General, Local (20ml 1% lidocaine + 0.5% marcaine) Specimens Removed: gallbladder to pathology Estimated Blood Loss (mls): 20 Fluid Volume Replaced (mls): 1,300 (crystalloid) Operative Report Dictated: No
[2017-05-03] MEDS ORDERED: ACETAMINOPHEN 325 MG TABLET (FP) PO PRN ×4 (21:16→21:39)
[2017-05-03] MEDS ORDERED: OXYCODONE/APAP 5/325MG COMBO TABLET PO PRN ×2 (21:17→21:31)
[2017-05-03] MEDS ORDERED: morphine CARPU-JECT 2 MG/1 ML DISP.SYRIN IVPUSH PRN ×2 (21:20→21:31)
[2017-05-03] MEDS ORDERED: oxyCODONE HCL 5 MG TABLET PO PRN ×2 (21:30→21:39)
[2017-05-03] MEDS ORDERED: ONDANSETRON 4 MG/2 ML VIAL IVPB PRN (21:31)
[2017-05-03] MEDS ORDERED: ALBUTEROL SO4 0.083% IH SOL 2.5 MG/3 ML VIAL.NEB. NEB PRN (21:31)
[2017-05-04] MEDS: PIPERACILLIN/TAZOB 4.5 GM 100 ML IVPB SCH ×2 (01:08→10:25)
[2017-05-04] MEDS ORDERED: PANTOPRAZOLE SODIUM 100 ML IVPB SCH (10:00)
[2017-05-04] MEDS ORDERED: PT OWN MED DRAWER 7, Y5N ONE (10:17)
[2017-05-04] MEDS: BUDESONIDE/FORMETEROL FUMARATE 160/4.5 mcg INHALER IH SCH (10:26)
--- NOTE | 2017-05-04 13:30 | DS ---
Physical Examination Vital Signs: Vital Signs Temperature 98.5 F 05/04/17 10:21 Pulse Rate 94 H 05/04/17 10:21 Respiratory Rate 18 05/04/17 10:21 Blood Pressure 142/78 05/04/17 10:21 O2 Sat by Pulse Oximetry (%) 99 05/04/17 09:00 Findings/Remarks: Pt seen and examined in bed. Feeling well, no pain meds needed yet today. Voided , ambulated, tolerated diet. Some incisional soreness, but presenting pain is gone. Constitutional: Yes: Well Nourished, No Distress, Calm, Obese Eyes: Yes: Conjunctiva Clear. No: Sclera Icterus Cardiovascular: Yes: Regular Rate and Rhythm. No: Murmur Respiratory: Yes: Regular, CTA Bilaterally Gastrointestinal: Yes: Normal Bowel Sounds, Soft, Abdomen, Obese, Tenderness ( incisional mild, mainly at umbilicus, no RUQ tenderness) Wound/Incision: Yes: Dressing Dry and Intact (x4) Neurological: Yes: Alert, Oriented Labs: no new labs Discharge Summary Reason For Visit: acute cholecystitis Current Active Problems Calculus of gallbladder with acute cholecystitis without obstruction (Acute) Epigastric pain (Acute) Morbid obesity with BMI of 45.0-49.9, adult (Acute) Procedures: Principal: laparoscopic cholecystectomy Hospital Course: 32yo obese M with asthma and GERD symptoms, otherwise generally healthy, presented with epigastric pain and leukocytosis, was found to have cholelithiasis with multiple stones. WBC mercedes on repeat, and he was admitted with presumed cholecystitis for antibiotics and lap krystal, which was done yesterday. Postop course has been unremarkable - pt voided, ambulated, tolerated po and has minimal pain controlled without narcotics. He is discharged home with lifting restrictions to follow up in 2 weeks. Condition: Good - Instructions Diet, Activity, Other Instructions: Postoperative instructions: You had a laparoscopic cholecystectomy on 05/03/[address] Hans Meek of [facility]. Resume your usual activities gradually, but no sports, heavy exertion or lifting more than 10-15 pounds for 4-6 weeks. Take the dressings off tomorrow night at home. Sticky tapes on incisions will fall off by themselves. Then you may shower daily, just pat the incision areas dry. No bath or swimming until the skin has completely healed. Eat lightly at first, but advance to your usual diet as tolerated. For pain, you may alternate Tylenol (acetaminophen) and/or ibuprofen every 6 hours as needed and as directed on the bottle. Do not take more than 3000mg of acetaminophen in a day. Call Dr. Meek's office at [phone] for your postop appointment (Wednesday ~ 2 weeks after surgery). Call Dr. Meek if you have: - increasing pain not responsive to pain medication - fever of 101F or higher - vomiting - unusual or increasing bleeding or drainage from wounds - increasing redness or swelling at wound sites - inability to urinate Please see your primary medical doctor within 2 weeks. Referrals: Matt Miles MD [Primary Care Provider] - Disposition: HOME - Home Medications Comprehensive Discharge Medication List: Ambulatory Orders Albuterol Sulfate Inhaler - [Ventolin Hfa Inhaler -] 1 - 2 inh PO PRN PRN Budesonide/Formeterol Fumarate [SYMBICORT 160/4.5mcg -] 1 puff IH PRN PRN
[2017-05-04] MEDS ORDERED: PANTOPRAZOLE SODIUM 40 MG in SODIUM CHLORIDE 100 ML IVPB SCH (14:13)
[2017-05-04 14:21] VITALS: BP 132/82; PULSE 78; TEMP 98
--- NOTE | 2017-05-04 14:36 | PN ---
Progress Note, Physician History of Present Illness: stable no new issues feels good - Current Medication List Current Medications: Active Medications Acetaminophen (Tylenol -) 650 mg PO Q6H PRN PRN Reason: FEVER OR PAIN Albuterol Sulfate (Ventolin 0.083% Nebulizer Soln -) 1 amp NEB Q6H PRN PRN Reason: SHORT OF BREATH/WHEEZING Budesonide/Formoterol Fumarate (Symbicort 160/4.5mcg -) 1 puff IH BID [facility] Last Admin: 05/04/17 10:26 Dose: 1 puff Pantoprazole Sodium 40 mg/ (Sodium Chloride) 100 mls @ 200 mls/hr IVPB DAILY [facility] Ondansetron HCl (Zofran Injection) 4 mg IVPB Q6H PRN PRN Reason: NAUSEA - Objective Vital Signs: Vital Signs Temperature 98.0 F 05/04/17 14:20 Pulse Rate 78 05/04/17 14:20 Respiratory Rate 18 05/04/17 14:20 Blood Pressure 132/82 05/04/17 14:20 O2 Sat by Pulse Oximetry (%) 99 05/04/17 09:00 Constitutional: Yes: No Distress, Calm, Obese Cardiovascular: Yes: Regular Rate and Rhythm Respiratory: Yes: Regular, CTA Bilaterally Gastrointestinal: Yes: Normal Bowel Sounds, Soft Musculoskeletal: Yes: WNL Extremities: Yes: WNL Wound/Incision: Yes: Clean/Dry Neurological: Yes: Alert, Oriented Psychiatric: Yes: Alert, Oriented Labs: CBC, BMP 05/02/17 06:00 05/02/17 06:00 INR, PTT INR 1.28 (0.82-1.09) H 05/02/17 06:00 Assessment/Plan Problem List - Problems (1) Epigastric pain Code(s): R10.13 - EPIGASTRIC PAIN (2) Calculus of gallbladder with acute cholecystitis without obstruction Code(s): K80.00 - CALCULUS OF GALLBLADDER W ACUTE CHOLECYST W/O OBSTRUCTION (3) Morbid obesity with BMI of 45.0-49.9, adult Code(s): E66.01 - MORBID (SEVERE) OBESITY DUE TO EXCESS CALORIES Z68.42 - BODY MASS INDEX (BMI) 45.0-49.9, ADULT plan post op can stop all abx
--- NOTE | 2017-05-05 17:52 | PATH ---
Surgical Pathology Report Patient Name: KATIUSKA DWYER Med. Rec. #: [id number] /Age/Gender: 1985 (Age: 32) / M Account: [id number] Location: [address] [place] [address]/[facility] Taken: 05/03/2017 Received: 05/04/2017 Reported: 05/05/2017 Physicians: Hans Meek M.D. Specimen(s) Received GALLBLADDER Clinical History Cholecystitis Final Diagnosis GALLBLADDER, CHOLECYSTECTOMY: ACUTE HEMORRHAGIC AND CHRONIC CHOLECYSTITIS, CHOLELITHIASIS. Electronically Signed Richard Barragan M.D. Gross Description Received in formalin, labeled "gallbladder" is an 11.3 x 3.5 x 3.5 cm gallbladder with a 0.2 cm in length portion of cystic duct attached. The outer surface is doyle rangel and varies from smooth to shaggy. The lumen contains doyle, tenacious bile as well as numerous yellow, irregular choleliths ranging from 0.1-1.7 cm in greatest dimension. The mucosa is doyle-red and focally eroded. The wall of the gallbladder ranges from 0.1-0.5 cm in thickness. Learning Support Resource Room Teacher sections are submitted in one cassette. /05/04/201705/04/2017
== END 2017-05-04 18:50 | disposition home or self-care (01) | DRG 263 ==
LOC: JER 02:32 → JERBED 13:45 → J6S 15:29
PROVIDERS: ADMIT Surgery; ATTEND Surgery
PROC: 0FT44ZZ Resection of Gallbladder, Percutaneous Endoscopic Approach (ICD-10-PCS; principal; 2017-05-03 13:00)
DX: K80.00 Calculus of gallbladder with acute cholecystitis without obstruction (principal); E66.01 Morbid (severe) obesity due to excess calories; Z68.42 Body mass index [BMI] 45.0-49.9, adult; J45.909 Unspecified asthma, uncomplicated; Z87.891 Personal history of nicotine dependence
CPT/HCPCS: 36415; 74177-TC; 76705-TC; 80053; 81003; 81015; 82150; 83605; 83690; 85025; 85610; 86850; 86900; 86901; 88304-TC; 94010; 94760; 99284-25

== ENCOUNTER 2019-04-12 13:19 | Emergency (ER) | payer OTHER ==
[2019-04-12 13:35] VITALS: BP 148/85; PULSE 100; TEMP 98.1; BMI 41.5
--- NOTE | 2019-04-12 13:35 | PDOC ---
Rapid Medical Evaluation Time Seen by Provider: 04/12/19 13:21 Medical Evaluation: Allergies Allergy/AdvReac Type Severity Reaction Status Date / Time guaifenesin [From Robitussin] Allergy Severe Hives Verified 05/01/17 03:40 brompheniramine maleate Allergy Hives Verified 05/02/17 13:45 [From Dimetapp Cold-Allergy (PE)] phenylephrine HCl Allergy Hives Verified 05/02/17 13:45 [From Dimetapp Cold-Allergy (PE)] 04/12/19 13:33 HPI: twisted ankle and fell on R knee yesterday PE: No gross deficits ORDERS: R knee and R ankle x-ray Discharge Disposition - Diagnosis Ankle sprain, Knee contusion - Referrals - Patient Instructions - Post Discharge Activity
[2019-04-12] MEDS ORDERED: IBUPROFEN 400 MG TABLET (FP) PO ONE ×2 (14:25→14:31)
--- NOTE | 2019-04-12 14:30 | PDOC ---
History of Present Illness - General Chief Complaint: Pain, Acute Stated Complaint: RT KNEE INJURY Time Seen by Provider: 04/12/19 13:21 History Source: Patient Exam Limitations: Clinical Condition - History of Present Illness Initial Comments: 04/12/19 14:33 Patient with no significant past medical history present with complaint of right anterior knee and does some of right ankle and lateral aspect of right foot pain status post trip and on the curbside yesterday and falling on right knee. Patient reported increased pain to right knee with ambulation. Patient reported taking Tylenol for pain which has not been helping. Patient reported had swelling to right knee and ankle which has improved today. Denies numbness or tingling sensation. Denies any other symptoms Timing/Duration: 24 hours Past History - Past Medical History Allergies/Adverse Reactions: Allergies Allergy/AdvReac Type Severity Reaction Status Date / Time guaifenesin [From Robitussin] Allergy Severe Hives Verified 04/12/19 13:35 brompheniramine maleate Allergy Hives Verified 04/12/19 13:35 [From Dimetapp Cold-Allergy (PE)] phenylephrine HCl Allergy Hives Verified 04/12/19 13:35 [From Dimetapp Cold-Allergy (PE)] Home Medications: Ambulatory Orders Budesonide/Formeterol Fumarate [SYMBICORT 160/4.5mcg -] 1 puff IH PRN PRN Leg Brace [Ankle Brace] 1 each MC DAILY #1 each 04/12/19 Leg Brace [Knee Brace] 1 each MC DAILY PRN 7 Days #1 each 04/12/19 Naproxen 500 mg PO BID PRN #20 tablet 04/12/19 Anemia: No Asthma: Yes (WHEEZING ONLY) Cancer: No Cardiac Disorders: Yes (CHILDHOOD HEART MURMUR) CVA: No COPD: No CHF: No Dementia: No Diabetes: No GI Disorders: No Disorders: No HTN: No Hypercholesterolemia: No Liver Disease: No Seizures: No Thyroid Disease: No - Surgical History Abdominal Surgery: No Appendectomy: No Cardiac Surgery: No Cholecystectomy: Yes Lung Surgery: No Neurologic Surgery: No Orthopedic Surgery: Yes (RIGHT ELBOW AGE 6) - Suicide/Smoking/Psychosocial Hx Smoking Status: Yes Smoking History: Never smoked Have you smoked in the past 12 months: No Number of Cigarettes Smoked Daily: 1 If you are a former smoker, when did you quit?: 2013 Hx Alcohol Use: Yes (RARE) Drug/Substance Use Hx: No Substance Use Type: None Hx Substance Use Treatment: No Review of Systems - Review of Systems Able to Perform ROS?: Yes Is the patient limited Latvian proficient: No Constitutional: No: Malaise, Night Sweats, Weakness HEENTM: No: Symptoms Reported Respiratory: No: Symptoms reported Cardiac (ROS): No: Symptoms Reported ABD/GI: No: Symptoms Reported Musculoskeletal: Yes: Symptoms Reported, See HPI, Joint Pain (right knee and ankle), Joint Swelling (right knee), Muscle Pain Neurological: No: Numbness, Paresthesia, Tingling All Other Systems: Reviewed and Negative *Physical Exam - Vital Signs Last Vital Signs Temp Pulse Resp BP Pulse Ox 98.1 F 100 H 18 148/85 98 04/12/19 13:33 04/12/19 13:33 04/12/19 13:33 04/12/19 13:33 04/12/19 13:33 - Physical Exam Comments: 04/12/19 14:30 GENERAL: Well developed, well nourished. Awake and alert in mild acute distress. CARDIOVASCULAR: Regular rate and rhythm. No murmurs, rubs, or gallops. PULMONARY: No evidence of respiratory distress. MUSCULOSKELETAL : Numbness to anterior patella of right knee brace small superficial abrasions to anterior patella of right knee. No swelling to knee. Mild tenderness to dorsal move right ankle and lateral aspect of right fifth toe small area of bruising to MCP of right fifth toe. No bony deformities EXTREMITIES: No cyanosis. No clubbing. No edema. No calf tenderness. SKIN: Warm and dry. Normal capillary refill. NEUROLOGICAL: Alert, awake, appropriate. No motor deficits in the lower extremities. Gait is normal without ataxia. PSYCHIATRIC: Cooperative. Good eye contact. Appropriate mood and affect. General Appearance: Yes: Nourished, Appropriately Dressed, Mild Distress Medical Decision Making - Medical Decision Making 04/12/19 14:34 Patient with no significant past medical history present with complaint of right anterior knee and does some of right ankle and lateral aspect of right foot pain status post trip and on the curbside yesterday and falling on right knee. Patient reported increased pain to right knee with ambulation. Patient reported taking Tylenol for pain which has not been helping. Patient reported had swelling to right knee and ankle which has improved today. Denies numbness or tingling sensation. Denies any other symptoms Exam significant for small areas superficial abrasion to anterior patella of right knee with moderate tenderness over anterior patella of right knee. Mild tenderness to dorsal mode of right foot and lateral aspect of right foot. No ankle or knee swelling. X-ray of right knee, ankle and foot shows no acute fracture or dislocation. Symptoms likely ankle and knee sprain. Ibuprofen 800 mg given for pain. Right ankle and knee wrapped with Brady bandage. Patient is stable for discharge on naproxen when necessary for pain with advised to do hot compresses *DC/Admit/Observation/Transfer Diagnosis at time of Disposition: Ankle sprain Qualifiers: Encounter type: initial encounter Involved ligament of ankle: unspecified ligament Laterality: right Qualified Code(s): S93.401A - Sprain of unspecified ligament of right ankle, initial encounter Knee contusion Qualifiers: Encounter type: initial encounter Laterality: right Qualified Code(s): S80.01XA - Contusion of right knee, initial encounter - Discharge Dispostion Disposition: HOME Condition at time of disposition: Stable Decision to Admit order: No - Prescriptions Prescriptions: Leg Brace [Knee Brace] 1 each MC DAILY PRN 7 Days #1 each PRN Reason: right knee pain Leg Brace [Ankle Brace] 1 each MC DAILY #1 each Naproxen 500 mg PO BID PRN #20 tablet PRN Reason: pain - Referrals Referrals: Reginald Villanueva DO [Staff Physician] - - Patient Instructions Printed Discharge Instructions: How to Use an Elastic Bandage-Knee Sprain, DI for Knee Sprain, DI for Ankle Sprain Additional Instructions: x-ray of right knee and ankle shows no acute fracture or dislocation. Symptoms likely right knee and ankle sprain from fall. Take prescribed medication as prescribed for pain and swelling Apply hot compresses to knee and ankle 2-3 times a day as needed for pain and swelling. Follow-up referred orthopedics if no improvement in pain in 4 days - Post Discharge Activity
== END 2019-04-12 14:43 | disposition home or self-care (01) ==
LOC: JERFT 13:19
PROC: 2W3QX1Z Immobilization of Right Lower Leg using Splint (ICD-10-PCS; principal; 2019-04-12)
DX: S93.401A Sprain of unspecified ligament of right ankle, initial encounter (principal); S80.01XA Contusion of right knee, initial encounter; W18.39XA Other fall on same level, initial encounter; Y93.89 Activity, other specified; Y92.89 Other specified places as the place of occurrence of the external cause
CPT/HCPCS: 73562-TC-RT-FY; 73610-TC-RT-FY; 99282-25

== ENCOUNTER 2019-07-06 08:40 | Emergency (ER) | payer OTHER ==
[2019-07-06 09:01] VITALS: BMI 42.7
[2019-07-06 09:51] LABS: BASO % 0.6 % (0-2.0); EOS % 6.9 % (0-4.5); HEMATOCRIT 43.4 % (35.4-49); HEMOGLOBIN 14.8 GM/dL (11.7-16.9); LYMPH % 24.7 % (8-40); MCH 29.3 pg (25.7-33.7); MEAN CELL VOLUME 85.9 fl (80-96); MEAN PLT VOLUME 9.1 fl (7.5-11.1); MONO % 7.1 % (3.8-10.2); NEUT % 60.7 % (42.8-82.8); PLATELET COUNT 258 K/MM3 (134-434); RBC 5.05 M/mm3 (4.00-5.60); RDW 14.1 % (11.9-15.9); WHITE BLOOD COUNT 7.9 K/mm3 (4.0-10.0)
[2019-07-06 10:13] LABS: BILIRUBIN,TOTAL 0.4 mg/dL (0.2-1); BLOOD UREA NITROGEN 17.3 mg/dL (7-18); TOT PROT 7.5 g/dl (6.4-8.2)
--- NOTE | 2019-07-06 11:52 | PDOC ---
Documentation entered by Madelyn Saha SCRIBE, acting as scribe for Sara Pradhan MD. Sara Pradhan MD: This documentation has been prepared by the Maria A jaime Adrianna, SCRIBE, under my direction and personally reviewed by me in its entirety. I confirm that the documentation accurately reflects all work, treatment, procedures, and medical decision making performed by me. History of Present Illness - General Chief Complaint: CVA/TIA Stated Complaint: ALTERED MENTAL Time Seen by Provider: 07/06/19 09:08 - History of Present Illness Initial Comments: The patient is a 34 year old male, with a significant PMH of asthma and obesity , who presents to the ED for evaluation of one episode of left arm pain and difficulty finding words earlier this morning. Patient notes he was in his normal state of health this morning, but woke up with left arm pain and numbness as if he slept on it. Patient notes he then developed mental slowness and difficulty finding words. Patient told his sister I feel disoriented and want to go to the hospital. He endorses some SOB at that time. Patient was able to ambulate to the car to get to the ED. Upon arrival to the ED , all of the patients symptoms have resolved. He does endorse an increase in stress recently, and notes he has had anxiety attacks in the past but this feels different. Denies fever, chills, chest pain, nausea, vomit, diarrhea, constipation, dysuria , hematuria. Allergies: guaifenesin, brompheniramine maleate, phenylephrine HCl Surgical History: cholecystectomy, right elbow orthopedic surgery (as a child) Social History: Former smoker (quit 5 years ago). Occasional EtOH use. Denies illicit drug use PCP: Dr. Miles Past History - Past Medical History Allergies/Adverse Reactions: Allergies Allergy/AdvReac Type Severity Reaction Status Date / Time guaifenesin [From Robitussin] Allergy Severe Hives Verified 07/06/19 08:47 brompheniramine maleate Allergy Hives Verified 07/06/19 08:47 [From Dimetapp Cold-Allergy (PE)] phenylephrine HCl Allergy Hives Verified 07/06/19 08:47 [From Dimetapp Cold-Allergy (PE)] Home Medications: Ambulatory Orders Budesonide/Formeterol Fumarate [SYMBICORT 160/4.5mcg -] 1 puff IH PRN PRN Anemia: No Asthma: Yes (WHEEZING ONLY) Cancer: No Cardiac Disorders: Yes (CHILDHOOD HEART MURMUR) CVA: No COPD: No CHF: No Dementia: No Diabetes: No GI Disorders: No Disorders: No HTN: No Hypercholesterolemia: No Liver Disease: No Seizures: No Thyroid Disease: No - Surgical History Abdominal Surgery: No Appendectomy: No Cardiac Surgery: No Cholecystectomy: Yes Lung Surgery: No Neurologic Surgery: No Orthopedic Surgery: Yes (RIGHT ELBOW AGE 6) - Immunization History Immunization Up to Date: Yes - Suicide/Smoking/Psychosocial Hx Smoking Status: Yes Smoking History: Never smoked Have you smoked in the past 12 months: No Number of Cigarettes Smoked Daily: 1 If you are a former smoker, when did you quit?: 2013 Information on smoking cessation initiated: No Hx Alcohol Use: No Drug/Substance Use Hx: No Substance Use Type: None Hx Substance Use Treatment: No Review of Systems - Review of Systems Comments:: GENERAL/CONSTITUTIONAL: No fever or chills. No weakness. HEAD, EYES, EARS, NOSE AND THROAT: No change in vision. No ear pain or discharge. No sore throat. CARDIOVASCULAR: +SOB (now resolved). No chest pain. RESPIRATORY: No cough, wheezing, or hemoptysis. GASTROINTESTINAL: No nausea, vomiting, diarrhea or constipation. GENITOURINARY: No dysuria, frequency, or change in urination. MUSCULOSKELETAL: +Left arm pain (now resolved). No joint or muscle swelling. No neck or back pain. SKIN: No rash NEUROLOGIC: No headache, vertigo, loss of consciousness, or change in strength/ sensation. ENDOCRINE: +Mental slowness (now resolved). +Difficulty finding words (now resolved). +Left arm numbness (now resolved). No increased thirst. No abnormal weight change. HEMATOLOGIC/LYMPHATIC: No anemia, easy bleeding, or history of blood clots. ALLERGIC/IMMUNOLOGIC: No hives or skin allergy. *Physical Exam - Vital Signs Last Vital Signs Temp Pulse Resp BP Pulse Ox 98.4 F 95 H 17 132/87 99 07/06/19 08:48 07/06/19 08:48 07/06/19 08:48 07/06/19 08:48 07/06/19 08:48 - Physical Exam Comments: GENERAL: +Obese. Awake, alert, and fully oriented, in no acute distress HEAD: No signs of trauma EYES: PERRLA, EOMI, sclera anicteric, conjunctiva clear ENT: Auricles normal inspection, hearing grossly normal, nares patent, oropharynx clear without exudates. Moist mucosa NECK: Normal ROM, supple, no lymphadenopathy, JVD, or masses LUNGS: Breath sounds equal, clear to auscultation bilaterally. No wheezes, and no crackles HEART: Regular rate and rhythm, normal S1 and S2, no murmurs, rubs or gallops ABDOMEN: Soft, nontender, normoactive bowel sounds. No guarding, no rebound. No masses EXTREMITIES: Normal range of motion, no edema. No clubbing or cyanosis. No cords, erythema, or tenderness NEUROLOGICAL: Cranial nerves II through XII grossly intact. Speech is fluent and clear. Normal gait. No deficits to light touch and temperature in face, upper extremities and lower extremities. No motor deficits in the face, upper extremities and lower extremities. No pronator drift. Normoreflexic in the upper and lower extremities. Toes are down-going bilaterally. Gait is normal without ataxia. SKIN: Warm, Dry, normal turgor, no rashes or lesions noted. ED Treatment Course - LABORATORY CBC & Chemistry Diagram: 07/06/19 09:40 07/06/19 09:40 - ADDITIONAL ORDERS Additional order review: Laboratory Results 07/06/19 07/06/19 09:40 09:40 Sodium 139 Potassium 4.0 Chloride 106 Carbon Dioxide 27 Anion Gap 6 L BUN 17.3 Creatinine 1.0 Est GFR (CKD-EPI)AfAm 112.51 Est GFR (CKD-EPI)NonAf 97.08 Random Glucose 94 Calcium 9.0 Total Bilirubin 0.4 AST 19 ALT 42 Alkaline Phosphatase 96 Creatine Kinase 119 Troponin I < 0.02 Total Protein 7.5 Albumin 4.0 07/06/19 09:40 RBC 5.05 MCV 85.9 MCHC 34.0 RDW 14.1 MPV 9.1 Neutrophils % 60.7 Lymphocytes % 24.7 Monocytes % 7.1 Eosinophils % 6.9 H Basophils % 0.6 - RADIOLOGY Radiology Studies Ordered: Category Date Time Status HEAD CT WITHOUT CONTRAST [CT] Stat CT Scan 07/06/19 09:23 Taken Radiograph Interpretation: EXAM#: TYPE/EXAM: RESULT: [id number] CT/HEAD CT WITHOUT CONTRAST Brief episode of aphasia. Impression: No evidence of a focal intracranial lesion or hemorrhage seen. Correlate clinically to determine further evaluation and follow-up. Reported By: Bronwyn Rossi MD 07/06/19 11:21 Medical Decision Making - Medical Decision Making 07/06/19 10:43 Pt presents to the ED complaining of a brief episode of chest pain, shortness of breath and mental slowness. Patient reports subjective word finding difficulty, but remained able to speak in complete sentences throughout the entire episode. Symptoms are most consistent with anxiety, but will check labs , EKG and Ct head to evaluate for electrolyte imbalance, intracrainial mass or PR. 07/06/19 11:48 tests are within normal limits. PAtient feels improved. Will discharge home. *DC/Admit/Observation/Transfer Diagnosis at time of Disposition: Speaking difficulty Chest pain Qualifiers: Chest pain type: other chest pain Qualified Code(s): R07.89 - Other chest pain - Discharge Dispostion Disposition: HOME Condition at time of disposition: Good Decision to Admit order: No - Referrals Referrals: Matt Miles MD [Primary Care Provider] - - Patient Instructions Printed Discharge Instructions: DI for Anxiety -- Adult Additional Instructions: you came to the ED because you were having difficulty speaking and chest pain. We did a cat scan, and EKG and blood work in the ED, all of which were normal. It is likely that your symptoms were caused by anxiety and stress, but if you experience recurrent or worsening symptoms, you should return to the ED. Return for chest pain, shortness of breath, difficulty speaking, weakness of one side of the body or face, or any other new or worsening symptoms. - Post Discharge Activity
[2019-07-06 12:00] VITALS: BP 126/73; PULSE 74; TEMP 98.3
--- NOTE | 2019-07-07 14:41 | EKG ---
Test Reason : Blood Pressure : / mmHG Vent. Rate : 083 BPM Atrial Rate : 083 BPM P-R Int : 192 ms QRS Dur : 100 ms QT Int : 380 ms P-R-T Axes : 050 026 034 degrees QTc Int : 446 ms NORMAL SINUS RHYTHM early EARLY REPOLARIZATION WHEN COMPARED WITH ECG OF 01-MAY-2017 06:02, NO SIGNIFICANT CHANGE WAS FOUND Confirmed by SHAHIDA YO MD ([id number]) on 07/07/2019 2:40:59 PM Referred By: Confirmed By:SHAHIDA YO MD
== END 2019-07-06 12:00 | disposition home or self-care (01) ==
LOC: JER 08:40
DX: R47.89 Other speech disturbances (principal); R07.9 Chest pain, unspecified; J45.909 Unspecified asthma, uncomplicated
CPT/HCPCS: 36415; 70450-TC; 80053; 82550; 84484; 85025; 93005; 93010; 99283-25

== ENCOUNTER 2024-08-18 04:40 | Day surgery (SDC) | payer BC ==
[2024-08-16 12:25] VITALS: BMI 38.7
[2024-08-18] MEDS ORDERED: MIDAZOLAM HCL 2 MG/2 ML SINGLE DOSE VIAL ONE (10:15)
[2024-08-18 13:18] VITALS: TEMP 97.3
[2024-08-18 14:12] VITALS: PULSE 70
[2024-08-18 14:25] VITALS: BP 129/85; RESP 20
== END 2024-08-18 11:45 | disposition home or self-care (01) ==
LOC: JASU-ENDO 04:40
PROVIDERS: ATTEND Student in an Organized Health Care Education/Training Program
PROC: 0DB78ZX Excision of Stomach, Pylorus, Via Natural or Artificial Opening Endoscopic, Diagnostic (ICD-10-PCS; 2024-08-18)
PROC: 0DB68ZX Excision of Stomach, Via Natural or Artificial Opening Endoscopic, Diagnostic (ICD-10-PCS; principal; 2024-08-18 10:15)
DX: K29.50 Unspecified chronic gastritis without bleeding (principal); B96.81 Helicobacter pylori [H. pylori] as the cause of diseases classified elsewhere
CPT/HCPCS: 88305-TC; 88341-TC; 88342-TC